=== PATIENT | female | born 1990 | race American Indian/Alaskan Native ===

== ENCOUNTER 2018-11-21 07:46 | Emergency (ER) | payer BC ==
[2018-11-21 08:57] LABS: HCG Qualitative,Urine Negative (Negative)
[2018-11-21 09:47] LABS: Bilirubin,Urine Negative (Negative); Blood,Urine Negative (Negative); Color,Urine Yellow (Yellow)
[2018-11-21 09:48] LABS: Protein,Urine <15 mg/dL mg/dL (Negative); Urobilinogen,Urine < 2.0 mg/dL (<2.0)
[2018-11-21 09:56] LABS: Bacteria,Urine 1+ /HPF (Negative); Mucus,Urine FEW /HPF
--- NOTE | 2018-11-21 10:33 | Emergency Department Report ---
ED Female HPI - General Chief complaint: Vaginal Bleeding Stated complaint: VAGINAL PAIN/SPOTTING Time Seen by Provider: 11/21/18 09:27 Source: patient Mode of arrival: Ambulatory Limitations: No Limitations - History of Present Illness Initial comments: Patient is a 28-year-old female who is complaining of some vaginal irritation and burning with urination for the past 3 days. Patient states that yesterday she also started noticing a discharge as well. Patient states when she wipes she does see some faint amount of blood on the toilet paper. Patient denies any abdominal pain back pain and vomiting diarrhea at this time. - Related Data Previous Rx's Medication Instructions Recorded Last Taken Type Nitrofurantoin Monohyd/M-Cryst 100 mg PO BID #14 capsule 11/21/18 Unknown Rx [Macrobid 100 mg Capsule] Phenazopyridine [Pyridium] 200 mg PO BID #6 tab 11/21/18 Unknown Rx Allergies Allergy/AdvReac Type Severity Reaction Status Date / Time No Known Allergies Allergy Verified 11/21/18 08:01 ED Review of Systems ROS: Stated complaint: VAGINAL PAIN/SPOTTING Other details as noted in HPI Comment: All other systems reviewed and negative ED Past Medical Hx - Past Medical History Previous Medical History?: No - Surgical History Past Surgical History?: No - Social History Smoking Status: Current Some Day Smoker Substance Use Type: Alcohol - Medications Home Medications: Home Medications Medication Instructions Recorded Confirmed Last Taken Type Nitrofurantoin Monohyd/M-Cryst 100 mg PO BID #14 capsule 11/21/18 Unknown Rx [Macrobid 100 mg Capsule] Phenazopyridine [Pyridium] 200 mg PO BID #6 tab 11/21/18 Unknown Rx ED Physical Exam - General Limitations: No Limitations General appearance: alert, in no apparent distress - Head Head exam: Present: atraumatic, normocephalic - Eye Eye exam: Present: normal appearance - ENT ENT exam: Present: mucous membranes moist - Neck Neck exam: Present: normal inspection - Respiratory Respiratory exam: Present: normal lung sounds bilaterally. Absent: respiratory distress, wheezes, rales, rhonchi - Cardiovascular Cardiovascular Exam: Present: regular rate, normal rhythm. Absent: systolic murmur, diastolic murmur, rubs, gallop - GI/Abdominal GI/Abdominal exam: Present: soft, normal bowel sounds. Absent: distended, tenderness, guarding, rebound - Extremities Exam Extremities exam: Present: normal inspection - Back Exam Back exam: Present: normal inspection - Neurological Exam Neurological exam: Present: alert, oriented X3 - Psychiatric Psychiatric exam: Present: normal affect, normal mood - Skin Skin exam: Present: warm, dry, intact, normal color. Absent: rash ED Course Vital Signs 11/21/18 08:02 Temperature 97.9 F Pulse Rate 65 Respiratory 16 Rate Blood Pressure 132/85 O2 Sat by Pulse 100 Oximetry ED Medical Decision Making - Lab Data Lab Results 11/21/18 Range/Units Unknown Urine Color Yellow (Yellow) Urine Turbidity Clear (Clear) Urine pH 7.0 (5.0-7.0) Ur Specific [place] 1.010 (1.003-1.030) Urine Protein <15 mg/dl (Negative) mg/dL Urine Glucose (UA) Negative (Negative) mg/dL Urine Ketones Negative (Negative) mg/dL Urine Blood Negative (Negative) Urine Nitrite Negative (Negative) Ur Reducing Substances Not Reportable Urine Bilirubin Negative (Negative) Urine Ictotest Not Reportable Urine Urobilinogen < 2.0 (<2.0) mg/dL Ur Leukocyte Esterase Moderate (Negative) Urine WBC (Auto) 4.0 (0.0-6.0) /HPF Urine RBC (Auto) 23.0 (0.0-6.0) /HPF U Epithel Cells (Auto) 6.0 (0-13.0) /HPF Urine Bacteria (Auto) 1+ (Negative) /HPF Urine Mucus Few /HPF Urine Yeast (Budding) 1+ /HPF Urine HCG, Qual Negative (Negative) - Medical Decision Making Patient does show evidence of UTI as well as a yeast infection. Patient will be given a Diflucan here in emergency department the patient will be sent home with Macrobid. Critical care attestation.: If time is entered above; I have spent that time in minutes in the direct care of this critically ill patient, excluding procedure time. ED Disposition Clinical Impression: Acute cyclitis, Yeast infection Disposition: - TO HOME OR SELFCARE Is pt being admited?: No Does the pt Need Aspirin: No Condition: Stable Instructions: Urinary Tract Infection in Women (ED), Vulvovaginal Candidiasis (ED) Referrals: RICHA TORRES MD [Primary Care Provider] - 3-5 Days Time of Disposition: 10:31
[2018-11-21 10:52] VITALS: BP 122/71
[2018-11-21] MEDS ORDERED: DIFLUCAN PO ONE (11:33)
== END 2018-11-21 10:52 | disposition home or self-care (01) ==
LOC: ED 07:46
DX: B37.9 Candidiasis, unspecified (principal); H20.00 Unspecified acute and subacute iridocyclitis; F17.200 Nicotine dependence, unspecified, uncomplicated
CPT/HCPCS: 81001; 81025

== ENCOUNTER 2022-03-29 16:43 | Emergency (ER) | payer BC, OTHER ==
[2022-03-29 22:08] LABS: Basophils % (Auto) 0.3 % (0.0-1.8); Eosinophils # (Auto) 0.1 K/mm3 (0.0-0.4); Eosinophils % (Auto) 0.5 % (0.0-4.3); Hematocrit 34.6 % (30.3-42.9); Hemoglobin 11.4 gm/dl (10.1-14.3); Lymphocytes # (Auto) 2.8 K/mm3 (1.2-5.4); Lymphocytes % (Auto) 20.6 % (13.4-35.0); Mean Corpuscular HGB Conc 33 % (30-34); Mean Corpuscular Volume 82 fl (79-97); Monocytes # (Auto) 1.2 K/mm3 (0.0-0.8); Platelet Count 314 K/mm3 (140-440); Red Blood Count 4.23 M/mm3 (3.65-5.03); Red Cell Distribution Width 15.5 % (13.2-15.2)
--- NOTE | 2022-03-29 22:35 | Emergency Department Report ---
ED Abdominal Pain HPI - General Chief Complaint: Abdominal Pain Stated Complaint: STOMACH PAIN Time Seen by Provider: 03/29/22 21:46 Source: patient Mode of arrival: Ambulatory Limitations: No Limitations - History of Present Illness Initial Comments: Is a 31-year-old female who presents for bilateral lower abdominal pain. Pain at 4/10 x4 days. Pain is described as cramping. Patient states last menstrual cycle was December 27, 2021. States positive home test. Patient denies vaginal spotting or bleeding however. There is some back pain. Patient denies nausea or vomiting. Symptoms are exacerbated by movement and palpation. Symptoms are relieved by nothing tried. Patient denies fall injury or trauma. Patient has not seen MANAGER PAYMENT today. MD Complaint: abdominal pain - Related Data Previous Rx's Medication Instructions Recorded Last Taken Type Nitrofurantoin Monohyd/M-Cryst 100 mg PO BID #14 capsule 11/21/18 Unknown Rx [Macrobid 100 mg Capsule] Phenazopyridine [Pyridium] 200 mg PO BID #6 tab 11/21/18 Unknown Rx cephALEXin [Keflex] 500 mg PO Q8HR 7 Days #21 cap 03/30/22 Unknown Rx Allergies Allergy/AdvReac Type Severity Reaction Status Date / Time No Known Allergies Allergy Verified 03/29/22 18:29 ED Review of Systems ROS: Stated complaint: STOMACH PAIN Other details as noted in HPI Constitutional: denies: chills, fever Eyes: denies: eye pain, eye discharge, vision change ENT: denies: ear pain, throat pain Respiratory: denies: cough, shortness of breath, wheezing Cardiovascular: denies: chest pain, palpitations Endocrine: no symptoms reported Gastrointestinal: abdominal pain. denies: nausea, vomiting, diarrhea, constipation, melena Genitourinary: denies: urgency, dysuria, frequency, hematuria, discharge, abnormal menses Musculoskeletal: back pain Skin: denies: rash, lesions Neurological: denies: headache, weakness, paresthesias, vertigo Psychiatric: denies: anxiety, depression Hematological/Lymphatic: denies: easy bleeding, easy bruising ED Past Medical Hx - Social History Smoking Status: Current Some Day Smoker Substance Use Type: Alcohol - Medications Home Medications: Home Medications Medication Instructions Recorded Confirmed Last Taken Type Nitrofurantoin Monohyd/M-Cryst 100 mg PO BID #14 capsule 11/21/18 Unknown Rx [Macrobid 100 mg Capsule] Phenazopyridine [Pyridium] 200 mg PO BID #6 tab 11/21/18 Unknown Rx cephALEXin [Keflex] 500 mg PO Q8HR 7 Days #21 cap 03/30/22 Unknown Rx ED Physical Exam - General Limitations: No Limitations General appearance: alert, in no apparent distress - Head Head exam: Present: normocephalic, normal inspection - Eye Eye exam: Present: EOMI Pupils: Present: normal accommodation - ENT ENT exam: Present: mucous membranes moist - Neck Neck exam: Present: normal inspection, full ROM. Absent: tenderness - Respiratory Respiratory exam: Present: normal lung sounds bilaterally. Absent: respiratory distress, wheezes - Cardiovascular Cardiovascular Exam: Present: regular rate, normal rhythm, normal heart sounds. Absent: systolic murmur, diastolic murmur, rubs, gallop - GI/Abdominal GI/Abdominal exam: Present: soft, tenderness (Bilateral lower abdomen), normal bowel sounds. Absent: distended, guarding, rebound, rigid, bruit, hernia - Rectal Rectal exam: Present: deferred - External exam: Present: other (Deferred per patient) - Extremities Exam Extremities exam: Present: normal inspection - Back Exam Back exam: Present: normal inspection, full ROM. Absent: CVA tenderness (R), CVA tenderness (L) - Neurological Exam Neurological exam: Present: alert, oriented X3, CN II-XII intact, normal gait - Expanded Neurological Exam Expanded Patient oriented to: Present: person, place, time Speech: Present: fluid speech Motor strength exam: RUE: 5, LUE: 5, RLE: 5, LLE: 5 Best Eye Response ([place]): (4) open spontaneously Best Motor Response ([place]): (6) obeys commands Best Verbal Response ([place]risteo): (5) oriented [place] Total: 15 - Psychiatric Psychiatric exam: Present: normal affect, normal mood - Skin Skin exam: Present: warm, dry, intact, normal color. Absent: rash ED Course Vital Signs 03/29/22 03/30/22 18:21 00:44 Temperature 99 F Pulse Rate 78 81 Respiratory 18 14 Rate Blood Pressure 146/85 131/85 [Right] O2 Sat by Pulse 98 99 Oximetry ED Medical Decision Making - Lab Data Result diagrams: 03/29/22 21:49 - Radiology Data Radiology results: report reviewed, image reviewed ULTRASOUND OBSTETRIC Indication: abd pain pos preg Findings: There is a single, living intrauterine . [place]-rump length = 3.5 cm = 10 weeks, 3 day(s). heart rate is 169 beats per minute. Left ovary was not visualized from overlying bowel gas. The right ovary was unremarkable.. No significant free fluid. Small hypoechoic collection adjacent to the gestational sac noted. Impression: Single, living intrauterine with estimated sonographic age of 10 weeks, 3 day(s). Small subchorionic hemorrhage measuring about 10 x 4 mm. Signer Name: Forest Aguilar MD Signed: 03/30/2022 1:41 AM Workstation Name: [id number] Transcribed By: Dictated By: Forest Aguilar MD Electronically Authenticated By: Forest Aguilar MD Signed Date/Time: 03/30/22140 DD/ 9 TD/TT: - Medical Decision Making Ultrasound OB single IUP heart rate 1 6 9 bpm gestational age 10 weeks 3 days. UA noted for UTI. Plan treat for UTI, follow-up with MANAGER PAYMENT in 2 to 3 days. Patient is currently tolerating p.o. intake without nausea or vomiting. Symptoms are improved. Patient and verbalized agreement and understanding with discharge plan. Patient DC'd home in stable condition at this time Critical care attestation.: If time is entered above; I have spent that time in minutes in the direct care of this critically ill patient, excluding procedure time. ED Disposition Clinical Impression: Vaginal bleeding during Disposition: 01 HOME / SELF CARE / HOMELESS Is pt being admited?: No Does the pt Need Aspirin: No Condition: Stable Instructions: Abdominal Pain (ED), Urinary Tract Infection, Adult, Vaginal Bleeding During , Second Trimester Additional Instructions: You are 10 weeks and 3 days , heart rate is 169 bpm , pelvic rest until cleared by MANAGER PAYMENT, take medications as prescribed, follow-up with your MANAGER PAYMENT in 2 to 3 days. Return to emergency department should symptoms worsen. Prescriptions: cephALEXin [Keflex] 500 mg PO Q8HR 7 Days #21 cap Referrals: NNEKA MCARTHUR MD [Staff Physician] - 3-5 Days Forms: Work/School Release Form(ED) Time of Disposition: 02:31
[2022-03-29 23:43] LABS: Color,Urine Yellow (Yellow)
[2022-03-29 23:47] LABS: Bacteria,Urine 4+ /HPF (Negative); Mucus,Urine FEW /HPF
[2022-03-30] MEDS ORDERED: cephALEXin 500 MG CAP PO ONE (01:08)
--- NOTE | 2022-03-30 01:46 | Ultrasound Report ---
ULTRASOUND OBSTETRIC Indication: abd pain pos preg Findings: There is a single, living intrauterine . [place]-rump length = 3.5 cm = 10 weeks, 3 day(s). heart rate is 169 beats per minute. Left ovary was not visualized from overlying bowel gas. The right ovary was unremarkable.. No signifi cant free fluid. Small hypoechoic collection adjacent to the gestational sac noted. Impression: Single, living intrauterine with estimated sonographic age of 10 weeks, 3 day(s). Small sub chorionic hemorrhage measuring about 10 x 4 mm. Signer Name: Forest Aguilar MD Signed: 03/30/2022 1:41 AM Workstation Name: [id number]
[2022-03-30] MEDS ORDERED: LIDOCAINE-MPF (1%) 10 MG/1 ML VIAL 5 ML INFILTRATI ONE (02:27)
[2022-03-30 03:20] VITALS: BP 142/87
== END 2022-03-30 03:20 | disposition home or self-care (01) ==
LOC: ED 16:43
DX: O46.91 Antepartum hemorrhage, unspecified, first trimester (principal); Z3A.10 10 weeks gestation of pregnancy; F17.200 Nicotine dependence, unspecified, uncomplicated; F10.20 Alcohol dependence, uncomplicated
CPT/HCPCS: 36415; 76801; 81001; 84702; 85025; 96372; 99284; J0696; J3490